=== PATIENT | male | born 1960 | race African-American/Black ===

== ENCOUNTER 2016-08-17 18:34 | Emergency (ER) | payer OTHER, BC | END 2016-08-17 19:46 | disposition home or self-care (01) | LOC: ER 18:34 | DX: M54.5 Low back pain (principal); E11.9 Type 2 diabetes mellitus without complications; W18.09XA Striking against other object with subsequent fall, initial encounter; Y92.69 Other specified industrial and construction area as the place of occurrence of the external cause; Y99.0 Civilian activity done for income or pay | CPT/HCPCS: 72100; 73030-LT; 73560-LT; 99283 ==